=== PATIENT | female | born 1990 | race Two or more races ===

== ENCOUNTER 2019-06-18 22:52 | Emergency (ER) | payer SELFPAY ==
[~2019-06-18] VITALS: Ht 170.2 cm; Wt 111.1 kg
[2019-06-18 23:15] LABS: Urine Amorphous Crystal MOD /hpf (None Seen); Urine Bacteria FEW /hpf (None Seen); Urine Blood Negative /uL (Negative); Urine WBC 1 /hpf (0 - 5)
[2019-06-18 23:25] LABS: Basophils # (auto) 0.1 10 ^3/uL (0-0.2); Basophils % (auto) 0.4 % (0.0-2.0); Eosinophils # (auto) 0.2 10 ^3/uL (0-0.8); Eosinophils % (auto) 1.2 % (0.0-7.0); Hematocrit 43.7 % (36.0-46.0); Hemoglobin 14.6 g/dL (12.2-16.2); Lymphocytes # (auto) 1.3 10 ^3/uL (0.4-5.4); Lymphocytes % (auto) 7.2 % (10.0-50.0); Mean Corpuscular Hemoglobin 29.4 pg (28.0-32.0); Mean Corpuscular Hgb Conc. 33.4 g/dL (32.0-36.0); Mean Corpuscular Volume 87.9 fL (80.0-100.0); Monocytes % (auto) 5.4 % (0.0-12.0); Neutrophils # (auto) 15.8 10 ^3/uL (1.6-8.6); Neutrophils % (auto) 85.8 % (37.0-80.0); Nucleated Red Blood Cells % 0.1 %; Platelet Count (auto) 300 10^3/uL (140-450); Red Blood Cells 4.97 10^6/uL (4.0-5.20); Red Cell Distribution Width 12.7 % (11.8-14.3); White Blood Cell 18.5 10^3/uL (4.4-10.8)
[2019-06-18] MEDS ORDERED: SODIUM CHLORIDE 0.9% 1,000 ML IV ONE (23:30)
[2019-06-18 23:43] LABS: Albumin 3.2 g/dL (3.4-5.0); BUN/Creatinine Ratio 20.5; Calcium 9.3 mg/dL (8.5-10.1); Magnesium 1.9 mg/dL (1.6-2.6); Potassium 4.1 mmol/L (3.5-5.1)
[2019-06-18 23:46] LABS: Bilirubin, Total 0.2 mg/dL (0.2-1.0); Total Protein 8.2 g/dL (6.4-8.2)
[2019-06-19] MEDS ORDERED: cefTRIAXone 1GM/50ML D5W 50 ML IV ONE (00:45)
[2019-06-19] MEDS ORDERED: metroNIDAZOLE 500MG/100ML 100 ML IV ONE (00:45)
[2019-06-19] MEDS ORDERED: HYDROcodone-ACET 5/325MG TAB PO ONE (01:00)
[2019-06-19 02:07] VITALS: BP 104/69
== END 2019-06-19 02:08 | disposition home or self-care (01) ==
LOC: ER 22:52
DX: N39.0 Urinary tract infection, site not specified (principal); N83.202 Unspecified ovarian cyst, left side; R11.2 Nausea with vomiting, unspecified
CPT/HCPCS: 36415; 74176; 80053; 81001; 81025; 82150; 83690; 83735; 85025; 96361; 96365; 96367; 96368; 99284; J0696; J3490; J7030

== ENCOUNTER 2019-11-18 02:23 | Observation (INO) | payer MEDICAID, OTHER ==
[~2019-11-18] VITALS: Ht 170.2 cm; Wt 111.6 kg
[2019-11-18 02:25] VITALS: BP 126/91
[2019-11-18] MEDS ORDERED: PREN-96 PO (02:55)
[2019-11-18] MEDS ORDERED: NIFEdipine 10 MG CAP PO ONE (03:30)
== END 2019-11-18 04:43 | disposition home or self-care (01) ==
LOC: ER 02:24 → LDRP 02:25
PROVIDERS: ADMIT Specialist; ATTEND Specialist
DX: O62.9 Abnormality of forces of labor, unspecified (principal); O24.419 Gestational diabetes mellitus in pregnancy, unspecified control; Z3A.21 21 weeks gestation of pregnancy
CPT/HCPCS: 59025; 81002; 82962; G0378

== ENCOUNTER 2020-09-21 18:04 | Emergency (ER) | payer MEDICAID ==
[~2020-09-21] VITALS: Ht 170.2 cm; Wt 115.2 kg
[~2020-09-21 18:04] MED LIST: PREN-96 PO
[2020-09-21 18:33] VITALS: BP 144/96
[2020-09-21] MEDS ORDERED: KETOROLAC TROMETH 60MG/2ML VIAL IM ONE (20:15)
[2020-09-21] MEDS ORDERED: methylPREDNISolone SOD SUCC 125 MG/2 ML VL IM ONE (20:15)
== END 2020-09-21 21:20 | disposition home or self-care (01) ==
LOC: ER 18:04
DX: S93.601A Unspecified sprain of right foot, initial encounter (principal); R60.0 Localized edema; E66.9 Obesity, unspecified; Z68.39 Body mass index [BMI] 39.0-39.9, adult; Z88.1 Allergy status to other antibiotic agents; W18.39XA Other fall on same level, initial encounter; Y93.89 Activity, other specified; Y92.89 Other specified places as the place of occurrence of the external cause; Y99.8 Other external cause status
CPT/HCPCS: 73620; 96372; 99284; J1885; J2930

== ENCOUNTER 2020-12-13 07:46 | Emergency (ER) | payer MEDICAID ==
[~2020-12-13] VITALS: Ht 170.2 cm; Wt 116.1 kg
[2020-12-13 08:49] VITALS: BP 121/68
[2020-12-13] MEDS ORDERED: LIDOCAINE HCL 5 % TOP OINT 35 GM TOP ONE (09:00)
[2020-12-13] MEDS ORDERED: KETOROLAC TROMETH 60MG/2ML VIAL IM ONE (09:00)
== END 2020-12-13 09:26 | disposition home or self-care (01) ==
LOC: ER 07:46
DX: M51.36 Other intervertebral disc degeneration, lumbar region (principal); M54.16 Radiculopathy, lumbar region; Z79.899 Other long term (current) drug therapy; Z88.1 Allergy status to other antibiotic agents
CPT/HCPCS: 96372; 99283; J1885